=== PATIENT | female | born 1970 | race African-American/Black ===

== ENCOUNTER 2016-09-26 13:44 | Outpatient (CLI) | payer OTHER ==
[2016-09-26 15:25] LABS: Amphetamine Not Detected (NotDetected); Barbiturates Screen Not Detected (NotDetected); Benzodiazepine Screen Not Detected (NotDetected); Cocaine Metabolite Screen Not Detected (NotDetected); Medtox Control Line Valid? VALID (VALID); Methadone Not Detected (NotDetected); Methamphetamine Not Detected (NotDetected); Opiate Screen Not Detected (NotDetected); Oxycodone Screen Not Detected (NotDetected); Phencyclidine (PCP) Not Detected (NotDetected); THC/Cannabinoid Screen Not Detected (NotDetected); Tricyclic Screen Not Detected (NotDetected)
[2016-09-26 15:29] LABS: Hemoglobin A1c 4.9 % (4.0-6.0)
[2016-09-26 15:31] LABS: ALT (SGPT) 23 U/L (8-55); AST (SGOT) 33 U/L (5-34); Albumin 4.3 g/dL (3.5-5.0); Alkaline Phosphatase 43 U/L (40-150); Anion Gap 20 mmol/L (10-20); BUN (Urea Nitrogen) 14 mg/dL (7.0-18.7); Bilirubin, Total Less than 0.3 mg/dL (0.2-1.2); Calc. Creatinine Clearance 0 mL/min (70-130); Calcium 8.7 mg/dL (7.8-10.44); Carbon Dioxide 20 mmol/L (22-29); Chloride 109 mmol/L (98-107); Estimated GFR-MDRD 53; Globulin 4.1 g/dL (2.4-3.5); Glucose 99 mg/dL (70-105); Potassium 4.7 mmol/L (3.5-5.1); Protein, Total 8.4 g/dL (6.0-8.3); Sodium 144 mmol/L (136-145)
[2016-09-26 15:48] LABS: Free T4 (Free Thyroxine) 1.05 ng/dL (0.70-1.48); Thyroid Stimulating Hormone 0.678 uIU/mL (0.35-4.94)
[2016-09-26 17:40] LABS: Hemoglobin 12.7 g/dL (12.0-16.0); Mean Corpuscular Hemoglobin 31.2 pg (27.0-31.0); Mean Corpuscular Volume 97.5 fL (81.0-99.0); Mean Platelet Volume 8.4 fL (7.4-10.4); Platelet Count 293 thou/uL (130-400); RBC Distribution Width 14.5 % (11.5-14.5); Red Blood Cell (RBC) Count 4.06 mill/uL (4.20-5.40); White Blood Cell (WBC) Count 5.4 thou/uL (4.8-10.8)
[2016-09-26 17:41] LABS: Anisocytosis SLIGHT = 6-15 cells (100X) (0-5/hpf); Lymphocytes 57 % (21-51); MDiff Complete? YES; Manual Diff?? YES; Monocytes 5 % (0-10); Neutrophil 38 % (42-75); PLT Morphology Comment Appears Adequate
== END 2016-09-26 13:45 | disposition home or self-care (01) ==
LOC: MADLABBHPM 13:44
PROVIDERS: ATTEND Family Medicine
DX: R00.0 Tachycardia, unspecified (principal)
CPT/HCPCS: 36415; 80053; 80306; 83036; 84439; 84443; 85025

== ENCOUNTER 2019-03-11 18:36 | Emergency (ER) | payer BC ==
--- NOTE | 2019-03-11 19:26 | RAD ---
2 view chest: [03/11/2019] Comparison:None available HISTORY: Cough, tachycardia FINDINGS: Heart and mediastinal contours are grossly unremarkable. No pneumothorax or pleural fluid. No focal consolidation or alveolar edema. IMPRESSION: No acute findings.
== END 2019-03-11 19:47 | disposition home or self-care (01) ==
LOC: MADERS 18:36
DX: J06.9 Acute upper respiratory infection, unspecified (principal); I10 Essential (primary) hypertension; F32.9 Major depressive disorder, single episode, unspecified; Z79.899 Other long term (current) drug therapy
CPT/HCPCS: 71046; 87804

== ENCOUNTER 2019-09-18 05:39 | Emergency (ER) | payer BC, OTHER | END 2019-09-18 06:27 | disposition home or self-care (01) | LOC: MADERS 05:39 | DX: S61.452A Open bite of left hand, initial encounter (principal); I10 Essential (primary) hypertension; F32.9 Major depressive disorder, single episode, unspecified; Z79.899 Other long term (current) drug therapy; W59.11XA Bitten by nonvenomous snake, initial encounter | CPT/HCPCS: 99283 ==

== ENCOUNTER 2019-12-12 11:04 | Outpatient (CLI) | payer OTHER, SELFPAY ==
[2019-12-12 12:40] LABS: ALT (SGPT) 22 U/L (8-55); AST (SGOT) 21 U/L (5-34); Albumin 4.1 g/dL (3.5-5.0); Alkaline Phosphatase 41 U/L (40-110); Anion Gap 16 mmol/L (10-20); BUN (Urea Nitrogen) 15 mg/dL (9.8-20.1); Bilirubin, Total 0.4 mg/dL (0.2-1.2); Calc. Creatinine Clearance 0 mL/min (70-130); Calcium 8.1 mg/dL (7.8-10.44); Carbon Dioxide 27 mmol/L (22-29); Chloride 104 mmol/L (98-107); Estimated GFR-MDRD 73; Globulin 3.2 g/dL (2.4-3.5); Glucose 90 mg/dL (70-105); Potassium 3.8 mmol/L (3.5-5.1); Protein, Total 7.3 g/dL (6.0-8.3); Sodium 143 mmol/L (136-145); Thyroid Stimulating Hormone 0.5656 uIU/mL (0.35-4.94)
[2019-12-12 12:41] LABS: INR-International Normal Ratio 1.1; PTT 27.1 sec (22.9-36.1); Prothrombin Time 14.4 sec (12.0-14.7)
[2019-12-12 12:53] LABS: #Basophils 0.1 thou/uL (0.0-0.2); #Eosinphils 0.1 thou/uL (0.0-0.7); #Lymphocytes 2.6 thou/uL (1.20-3.40); #Monocytes 0.3 thou/uL (0.11-0.59); #Neutrophils 2.8 thou/uL (1.40-6.50); %Basophils 2.4 % (0.0-1.0); %Lymphocytes 43.8 % (21.0-51.0); %Monocytes 5.2 % (0.0-10.0); %Neutrophils 46.7 % (42.0-75.0); Hemoglobin 11.8 g/dL (12.0-16.0); Mean Corpuscular HGB CONC 31.1 g/dL (32.0-36.0); Mean Corpuscular Hemoglobin 30.3 pg (27.0-31.0); Mean Corpuscular Volume 97.5 fL (78.0-98.0); Mean Platelet Volume 8.4 fL (7.4-10.4); Platelet Count 335 thou/uL (130-400); RBC Distribution Width 17.1 % (11.5-14.5); White Blood Cell (WBC) Count 5.9 thou/uL (4.8-10.8)
[2019-12-12 17:17] LABS: Free T4 (Free Thyroxine) 0.91 ng/dL (0.70-1.48)
[2019-12-12 17:20] LABS: Follicle Stimulating Hormone 25.01 mIU/mL (See Ranges); Luteinizing Hormone 31.54 mIU/mL (See Ranges)
== END 2019-12-12 11:05 | disposition home or self-care (01) ==
LOC: MADEKG 11:04
PROVIDERS: ATTEND Family Medicine
DX: N95.1 Menopausal and female climacteric states (principal); Z79.899 Other long term (current) drug therapy; R00.0 Tachycardia, unspecified
CPT/HCPCS: 36415; 80053; 83001; 83002; 84439; 84443; 84481; 85025; 85610; 85730

== ENCOUNTER 2020-08-11 19:08 | Outpatient (CLI) | payer OTHER | END 2020-08-11 19:09 | disposition home or self-care (01) | LOC: MADLABBHPM 19:08 | PROVIDERS: ATTEND Family Medicine | DX: Z01.419 Encounter for gynecological examination (general) (routine) without abnormal findings (principal) | CPT/HCPCS: 88142; G0123 ==

== ENCOUNTER 2023-01-22 12:10 | Emergency (ER) | payer OTHER ==
[2023-01-22] MEDS ORDERED: Ibuprofen 800 MG TAB ONE (13:45)
== END 2023-01-22 13:56 | disposition home or self-care (01) ==
LOC: MADERS 12:10
DX: S82.61XA Displaced fracture of lateral malleolus of right fibula, initial encounter for closed fracture (principal); I10 Essential (primary) hypertension; W11.XXXA Fall on and from ladder, initial encounter
CPT/HCPCS: 29515

== ENCOUNTER 2025-02-23 10:15 | Emergency (ER) | payer OTHER ==
[2025-02-23 11:04] LABS: #Basophils 0.1 thou/uL (0.0-0.2); #Eosinophils 0.1 thou/uL (0.0-0.7); #Lymphocytes 2.2 thou/uL (1.20-3.40); #Monocytes 0.5 thou/uL (0.11-0.59); #Neutrophils 2.7 thou/uL (1.40-6.50); %Basophils 2.2 % (0.0-1.0); %Eosinophils 2.1 % (0.0-10.0); %Lymphocytes 39.1 % (21.0-51.0); %Monocytes 8.5 % (0.0-10.0); %Neutrophils 48.1 % (42.0-75.0); Hematocrit 46.5 % (36.0-47.0); Hemoglobin 14.4 g/dL (12.0-16.0); Mean Corpuscular Hemoglobin 30.1 pg (27.0-31.0); Mean Corpuscular Volume 97.1 fl (78.0-98.0); Platelet Count 300 10x3/uL (130-400); Red Blood Cell (RBC) Count 4.79 mill/uL (4.20-5.40); White Blood Cell (WBC) Count 5.5 10x3/uL (4.8-10.8)
[2025-02-23 11:17] LABS: ALT (SGPT) 25 U/L (Less than 34); AST (SGOT) 41 U/L (11-34); Albumin 4.8 g/dL (3.1-4.5); Alkaline Phosphatase 77 U/L (40-110); Anion Gap 22 mmol/L (10-20); BUN (Urea Nitrogen) 11 mg/dL (9.8-20.1); Bilirubin, Total 1.4 mg/dL (0.3-1.2); Calc. Creatinine Clearance 0 mL/min (70-130); Calcium 9.7 mg/dL (7.8-10.44); Carbon Dioxide 20 mmol/L (22-29); Chloride 97 mmol/L (98-107); Globulin 4.0 g/dL (2.4-3.5); Glucose 77 mg/dL (70-105); Potassium 3.8 mmol/L (3.5-5.1); Sodium 135 mmol/L (136-145)
[2025-02-23 11:23] LABS: Troponin I 0.011 ng/mL (< 0.028)
== END 2025-02-23 12:00 | disposition home or self-care (01) ==
LOC: MADERS 10:15
DX: R42 Dizziness and giddiness (principal); F41.9 Anxiety disorder, unspecified; I10 Essential (primary) hypertension; R29.700 NIHSS score 0
CPT/HCPCS: 70450; 80053; 84484; 85025; 93005